=== PATIENT | male | born 1965 | race Caucasian/White ===

== ENCOUNTER 2022-04-11 19:52 | Inpatient (IN) | payer BC ==
[~2022-04-11] VITALS: Ht 190.5 cm; Wt 123.8 kg
[~2022-04-11 19:52] MED LIST: NO HOME MEDICATIONS; NORCO 325 MG-51 TAB PO
[2022-04-12] VITALS (8 sets, daily range): BP systolic 114–136; BP diastolic 64–75; PULSE 75–85; TEMP 98.4–101.8
[2022-04-12 01:01] LABS: PARTIAL THROMBOPLASTIN TIME 88.4 SECONDS (26.0-37.0)
[2022-04-12 03:20] LABS: TSH w REFLEX 2.584 uIU/mL (0.350-4.940)
--- NOTE | 2022-04-12 09:27 | NUR ---
bilingual social worker met with patient at [facility] to complete intake and discuss discharge plan. Patient reports that he lives at home with his Carolyn ([phone]) in [place]. He is independent with his ADL's and does not utilize any DME to assist with mobility. Patient has no home oxygen needs. PCP is Dr. Kang and he utilizes [facility] for prescription needs with no cost difficulty. Patient states that he does not have a DPOA- established and does not wish to create one at this time. Patient is planning on returning home once medically ready. Discharge plan: Home
[2022-04-12 09:50] LABS: HEMATOCRIT 40.7 % (42.0-52.0); HEMOGLOBIN 13.9 g/dl (13.5-18.0); MEAN CELL VOLUME 84 fl (80.0-100.0); MEAN CORPUSCULAR HEMOGLOBIN 29 pg (27-31); MEAN CORPUSCULAR HGB CONC 34 g/dl (33.0-37.0); MEAN PLATELET VOLUME 10.1 fl (7.4-10.4); PLATELET COUNT 277 K/mm3 (130-400); RED BLOOD COUNT 4.85 M/mm3 (4.20-5.60)
[2022-04-12 09:59] LABS: CREATININE, serum 1.16 mg/dL (0.72-1.25); POTASSIUM 3.9 mmol/L (3.5-4.5)
--- NOTE | 2022-04-12 13:00 | NUR ---
Initial visit; Patient, his and daughter thanked Digital Strategist for looking in on David and letting him know of the availability of [facility] at our hospital. Digital Strategist welcomed David who is from [place] and offered God's blessings and a rapid recovery. He thanked Digital Strategist for stopping.
--- NOTE | 2022-04-12 19:00 | NUR ---
REPORT HAS BEEN GIVEN TO ROBINA MISTRY. PT HAS RESTED IN CHAIR MOST OF DAY, HAS HAD MINIMAL PAIN, DENIES SOB ON ROOM AIR. MORPHINE GIVEN X1 FOR LEFT LATERAL CHEST PAIN UNDER PT'S ARM. PT STATES THAT PAIN DOES INCREASE WITH MOVEMENT, IS SHARP THEN DISSIPATES. PT HAS AMBULATED IN ROOM ET TOLERATED WELL. HEPARIN GTT INFUSING. PT'S FAMILY HAS BEEN HERE TO VISIT. PT DID HAVE ELEVATED TEMP THAT DECREASED WITH TYLENOL ADMINISTRATION, DR. WETZEL WAS NOTIFIED.
[2022-04-13 03:45] VITALS: BP 118/65; PULSE 82; TEMP 99.8
[2022-04-13 04:20] LABS: MUCOUS Present (NOT PRESENT); PH 5 (5-8); SQUAMOUS EPITHELIAL 0-2 /hpf (0-10); URINE APPEARANCE Clear (CLEAR/HAZY); URINE BACTERIA None Seen /hpf (NONE SEEN); URINE COLOR Yellow (YELLOW); URINE GLUCOSE Negative (NEGATIVE); URINE PROTEIN(semi-quant) 1+ (NEGATIVE)
[2022-04-13 04:21] LABS: URINE BILIRUBIN Negative (NEGATIVE); URINE BLOOD 1+ (NEGATIVE); URINE KETONE Negative (NEGATIVE); URINE LEUKOCYTE ESTERASE Negative (NEGATIVE); URINE NITRATE Negative (NEGATIVE); URINE UROBILINOGEN Negative (NEGATIVE)
[2022-04-13 04:37] LABS: COLLECTION METHOD CLEAN CATCH
--- NOTE | 2022-04-13 06:08 | NUR ---
PATIENT IS ORIENT AND ALERT X4, VSS, HAD FEVER OVERNIGHT, TECHNICAL SERVICES CONSULTANT NOTIFIED, IV ANTIBIOTICS STARTED, PT HAS INTERMITTED CHEST PAIN MORPHINE 2MG IV GIVEN PRN.STILL ON HEPARINE SRIP.
[2022-04-13 07:02] LABS: HEMATOCRIT 39.5 % (42.0-52.0); HEMOGLOBIN 13.1 g/dl (13.5-18.0); MEAN CELL VOLUME 85 fl (80.0-100.0); MEAN CORPUSCULAR HEMOGLOBIN 28 pg (27-31); MEAN CORPUSCULAR HGB CONC 33 g/dl (33.0-37.0); MEAN PLATELET VOLUME 10.8 fl (7.4-10.4); PLATELET COUNT 279 K/mm3 (130-400); RED BLOOD COUNT 4.63 M/mm3 (4.20-5.60); REDCELL DISTRIBUTION WIDTH-CV 14.1 % (11.5-14.5)
[2022-04-13 07:04] LABS: ALBUMIN 2.8 gm/dL (3.5-5.0); CALCIUM 8.8 mg/dL (8.4-10.2); CREATININE, serum 1.2 mg/dL (0.72-1.25); MAGNESIUM 2.1 mg/dL (1.6-2.6); PHOSPHOROUS 3.4 mg/dL (2.3-4.7)
[2022-04-13 07:25] VITALS: BP 116/68; PULSE 80; TEMP 99.8
--- NOTE | 2022-04-13 08:15 | NUR ---
Patient is sitting in bench, alert and oriented x 4, VSS. Telemetry in place, NSR. States pain with movement. Hep gtt at 26ml/hr. Assessment completed, no other needs at this time. Call light within reach.
[2022-04-13 09:02] LABS: BAND 4 % (0-10); EOSINOPHIL 2 % (0-4); LYMPHOCYTE 20 % (20.0-51.0); METAMYELOCYTE 1 % (0-0); NEUTROPHILS 59 % (42.0-75.2); PLATELET ESTIMATE NORMAL (NORMAL)
--- NOTE | 2022-04-13 09:10 | NUR ---
Hep gtt sttoped.
--- NOTE | 2022-04-13 09:15 | NUR ---
Called RT to provide IS. Not in room yet.
[2022-04-13 11:32] VITALS: BP 130/74; PULSE 80; TEMP 99.5
[2022-04-13 15:43] VITALS: BP 118/72; PULSE 78; TEMP 98
--- NOTE | 2022-04-13 18:09 | NUR ---
Patient states headache, tylenol provided.
--- NOTE | 2022-04-13 18:34 | NUR ---
Patient is resting in chair, some back and headache. Using the incentive sprirometer. Max temp 99.8 during the day. Report will be given to night RN
[2022-04-13 19:56] VITALS: BP 124/73; PULSE 80; TEMP 98.7
[2022-04-14] VITALS: BP 117/70; PULSE 72; TEMP 98.7
[2022-04-14 04:13] VITALS: BP 113/69; PULSE 74; TEMP 98.5
--- NOTE | 2022-04-14 05:00 | NUR ---
ASSESSMENT COMPLETE FOR THIS SHIFT. PT RESTING IN HIS RECLINER WATCHING TV. PT COMPLAINED OF MILD CHEST DISCOMFORT, WHICH HE SAID, HE DIDN'T NEED MEDICATION FOR. PT DENIED PALPITATIONS, GENERAL PAIN, N,V,D, SOB OR DIZZINESS. PT HAD A PRETTY UNEVENTFUL NIGHT. PT EXPRESSED NO OTHER NEEDS AT THIS TIME. CALL LIGHT WITHIN REACH.
[2022-04-14 06:50] LABS: HEMATOCRIT 39.7 % (42.0-52.0); HEMOGLOBIN 13.3 g/dl (13.5-18.0); MEAN CELL VOLUME 85 fl (80.0-100.0); MEAN CORPUSCULAR HEMOGLOBIN 28 pg (27-31); MEAN CORPUSCULAR HGB CONC 34 g/dl (33.0-37.0); MEAN PLATELET VOLUME 10.4 fl (7.4-10.4); PLATELET COUNT 319 K/mm3 (130-400); RED BLOOD COUNT 4.69 M/mm3 (4.20-5.60)
[2022-04-14 07:06] LABS: ALBUMIN 2.9 gm/dL (3.5-5.0); CALCIUM 9.1 mg/dL (8.4-10.2); CREATININE, serum 1.13 mg/dL (0.72-1.25); MAGNESIUM 2.3 mg/dL (1.6-2.6); PHOSPHOROUS 3.2 mg/dL (2.3-4.7); POTASSIUM 3.9 mmol/L (3.5-4.5)
[2022-04-14 07:12] VITALS: BP 128/73; PULSE 74; TEMP 97.7
--- NOTE | 2022-04-14 08:00 | NUR ---
Patient is sittin in luis, alert and oriented x 4, VSS, no fever along the night. He had a bad night, unable to sleep. Some chest pain. Assessment completed, meds provided. Right now getting breakfast. No other needs at this time. Call [facility] within reach.
[2022-04-14 08:10] LABS: BAND 4 % (0-10); BASOPHIL 2 % (0-2); EOSINOPHIL 1 % (0-4); NEUTROPHILS 60 % (42.0-75.2)
[2022-04-14 08:11] LABS: LYMPHOCYTE 21 % (20.0-51.0); PLATELET ESTIMATE NORMAL (NORMAL)
[2022-04-14] MEDS ORDERED: ELIQUIS 5MG PO (09:12)
[2022-04-14] MEDS ORDERED: DOXYCYCLINE 10100 MG PO (09:18)
--- NOTE | 2022-04-14 11:06 | NUR ---
Patient was provided with discharge informacion, all questions answered. Telemetry and IV discontinued.
--- NOTE | 2022-04-14 11:40 | NUR ---
Patient leave the room at 1115.
== END 2022-04-14 11:15 | disposition home or self-care (01) | DRG 175 ==
LOC: MEDICAL 19:52
PROVIDERS: Physician Assistant; ADMIT Internal Medicine
DX: I26.99 Other pulmonary embolism without acute cor pulmonale (principal); J18.9 Pneumonia, unspecified organism; J91.8 Pleural effusion in other conditions classified elsewhere; I34.0 Nonrheumatic mitral (valve) insufficiency; D72.829 Elevated white blood cell count, unspecified; Z86.16 Personal history of COVID-19; Z72.89 Other problems related to lifestyle
CPT/HCPCS: J0696; J1644; J2270